=== PATIENT | male | born 1955 | race Caucasian/White ===

== ENCOUNTER 2019-03-05 10:08 | Emergency (ER) | payer OTHER ==
[2019-03-05 10:20] VITALS: TEMP 97.1
[2019-03-05] MEDS ORDERED: HYDROcodone 5MG/APAP 325MG 1 EA TAB PO ONE (10:36)
[2019-03-05] MEDS ORDERED: diazePAM 5 MG TAB PO ONE (10:36)
--- NOTE | 2019-03-05 10:40 | ED.PDOC ---
History of Present Illness - General Chief Complaint: Trauma Stated Complaint: Neck, R ribcage, R lower back discomfort Time Seen by Provider: 03/05/19 10:36 Source: patient Exam Limitations: no limitations - History of Present Illness Initial Comments: 63 yo M who presents after fall yesterday with bilateral neck pain that radiates up with associated headache, R lower back pain, R rib pain. Pt states he was stepping on the boat and did not realize it was as low as it was, slipped and fell sustaining the injuries noted above. Denies head trauma, LOC. Pt states he feels more sore today. Pt is not on any anticoagulation. Denies weakness, numbness, change in vision, CP, SOB, abd pain, n/v, flank pain, hematuria. Allergies/Adverse Reactions: Allergies NO KNOWN ALLERGY Allergy (Verified 03/05/19 10:24) Home Medications: Ambulatory Orders Acetaminophen W/ Codeine [Tylenol W/ CODEINE #3] 1 ea PO Q8H PRN #12 03/05/19 Methocarbamol [Robaxin] 500 mg PO Q8H PRN #16 tab 03/05/19 Review of Systems - Review of Systems Constitutional: Denies: chills, diaphoresis, fever EENTM: Denies: blurred vision, double vision Respiratory: Denies: short of breath, stridor, wheezing Cardiology: Denies: chest pain, palpitations, syncope Gastrointestinal/Abdominal: Denies: abdominal pain, nausea, vomiting Genitourinary: Denies: dysuria, hematuria Musculoskeletal: States: back pain, neck pain, other - R rib pain Skin: States: other - no wounds. Denies: change in color Neurological: States: headache. Denies: numbness, paresthesia, tingling, weakness Past Medical History (General) - Patient Medical History Hx Stroke: No Hx Asthma: Yes Hx Cardiac Disorders: Yes - Dyslipidemia Hx Congestive Heart Failure: No Hx Hypertension: Yes Hx Diabetes: Yes Hx MRSA: No - Vaccination History Hx Influenza Vaccination: Yes - 2019 Hx Pneumococcal Vaccination: Yes - Social History Hx Tobacco Use: No Hx Alcohol Use: Yes - Social use Hx Substance Use: No Family Medical History - Family History Father Hx Family Hypertension: Yes Hx Cardiac Disease: Yes Physical Exam - Physical Exam General Appearance: Alert, Comfortable, No apparent distress, Well Developed, Well Nourished Eye Exam: bilateral normal Ears, Nose, Throat: normal ENT inspection Neck: full range of motion, supple, normal inspection, other - +C midline TTP. No midline T/L spine TTP. No C/T/L spine step off's, deformities, crepitus, ecchymosis. Respiratory: lungs clear, normal breath sounds, no respiratory distress, no accessory muscle use Cardiovascular/Chest: normal peripheral pulses, regular rate, rhythm, no edema, no gallop, no JVD, no murmur Peripheral Pulses: radial,right: 2+, radial,left: 2+ Gastrointestinal/Abdominal: non tender, soft, other - No distention, guarding, rebound. Atraumatic. Back Exam: normal inspection, no CVA tenderness, other - L paraspinal TTP. Extremity: normal range of motion, non-tender, normal inspection, no pedal edema, no calf tenderness, normal capillary refill, other - Full ROM of all extremities without deformity, tenderness, or swelling. Neurovascularly intact. 2+ distal pulses. Cap refill <2 seconds. Neurologic: desk officer II-XII nml as tested, no motor/sensory deficits, alert, normal mood/affect, oriented x 3 Skin Exam: normal color, warm/dry Progress - Progress Progress: MIPS: CT head obtained 2/2 ARCE >24 hours after injury. I have explained and reviewed all results with the pt. Pt is comfortable going home. I explained that emergent conditions may arise and to return to the ER for new, worsening, or any persistent conditions. I've explained the importance of f/u for recheck. All questions and concerns addressed at this time. Pt understands and agrees with plan. Pt well appearing, NAD, is stable for discharge. Laura Pond MD Emergency Medicine Physician Billing Number [id number] - Results/Orders Results/Orders: Rib XR: EXAM DESCRIPTION: Ribs,Right 3 Views CLINICAL HISTORY: pain, trauma COMPARISON: None. TECHNIQUE: 3 views right FINDINGS: Orthopedic anchors are observed in the right shoulder. No pneumothorax is seen. No rib fracturing is detected. IMPRESSION: No rib fracturing is detected. Electronically signed by: Tanner Walton MD 03/05/2019 11:29 AM [address]IENT PHARMACY MANAGER CT head: EXAM DESCRIPTION: Head CT without contrast CLINICAL HISTORY: trauma COMPARISO N: None available TECHNIQUE: Noncontrast head CT was performed with routine protocol. FINDINGS: Normal stevens-white matter differentiation. Ventricles and sulci are normal for age. No high density hemorrhage, focal edema or shift of the midline. No sulcal effacement. Normal orbital contents. Basilar cisterns appear clear. Intact calvarium with no fracture or lytic lesion. Normal aeration of tympanic cavities and mastoid air cells. No fluid levels in the paranasal sinuses. Skull base appears intact. Symmetrical internal auditory canals. IMPRESSION: No acute intracranial pathologic process. This exam was performed according to our departmental dose-optimization program, which includes automated exposure control, adjustment of the mA and/or kV according to patient size and/or use of iterative reconstruction technique. Total DLP equals 967.47 mGycm. Electronically signed by: Ethan Muse MD 03/05/2019 11:31 AM [address]IENT PHARMACY MANAGER CT c spine: EXAM DESCRIPTION: Cervical Spine CLINICAL HISTORY: trauma COMPARISON: None Available. TECHNIQUE: Cervical CT is performed with thin-section axial imaging. MPRs are created and reviewed as well. FINDINGS: Axial bone window images reveal intact ring of C1. No abnormal widening of the atlantodens interval. No fracture of the vertebral bodies or transverse processes or posterior elements. Lung apices appear clear. No cervical mass or adenopathy. Sagittal reformatted images show normal alignment of vertebral bodies and facets. No jumped facet or facet fracture. Normal craniocervical alignment. No prevertebral soft tissue swelling. No acute avulsion of the spinous processes. Spondylosis: Degenerative disc disease with uncinate spurring at C4-5 and C5-6. Severe left C5-6 neural foraminal narrowing related to uncinate spurring. Sagittal reformatted images show mild posterior disc/osteophyte complexes at C4-5 and C5-6 without high- grade spinal stenosis. Nuchal ligament calcification is incidentally noted. Coronal reformatted images show normal atlantooccipital and atlantoaxial alignment. The base of the dens is intact as is the body of C2. Intact lateral masses. IMPRESSION: Negative for fracture or posttraumatic subluxation. This exam was performed according to our departmental dose-optimization program, which includes automated exposure control, adjustment of the mA and/or kV according to patient size and/or use of iterative reconstruction technique. Total DLP equals 441.08 mGycm. Electronically signed by: Ethan Muse MD 03/05/2019 11:34 AM OUTPATIENT PHARMACY MANAGER Vital Signs - 24 hr 03/05/19 03/05/19 03/05/19 10:18 10:30 11:30 Temperature 97.1 F L 97.1 F L Pulse Rate [ 103 H 102 H 100 H Pulse ox] Respiratory 22 22 22 Rate Blood Pressure 171/91 154/90 121/96 [L brachial] O2 Sat by Pulse 95 95 93 L Oximetry Departure - Departure Clinical Impression: Muscle strain, Neck pain, acute Fall Qualifiers: Encounter type: initial encounter Qualified Code(s): W19.XXXA - Unspecified fall, initial encounter Contusion of rib on right side Qualifiers: Encounter type: initial encounter Qualified Code(s): S20.211A - Contusion of right front wall of thorax, initial encounter Headache Qualifiers: Headache type: unspecified Headache chronicity pattern: acute headache Intractability: not intractable Qualified Code(s): R51 - Headache Time of Disposition: 11:54 Disposition: Discharge to Home or Self Care Health Concerns: Condition: stable Departure Forms: ED Discharge - Pt. Copy, Patient Portal Self Enrollment Instructions: DI for Trauma, Muscle Strain Prescriptions: Acetaminophen W/ Codeine [Tylenol W/ CODEINE #3] 1 ea PO Q8H PRN #12 PRN Reason: Pain Methocarbamol [Robaxin] 500 mg PO Q8H PRN #16 tab PRN Reason: Pain Home Medications: Ambulatory Orders Acetaminophen W/ Codeine [Tylenol W/ CODEINE #3] 1 ea PO Q8H PRN #12 03/05/19 Methocarbamol [Robaxin] 500 mg PO Q8H PRN #16 tab 03/05/19 Additional Instructions: Follow up: [facility] As needed, if symptoms worsen Your Primary Care Physician Make appointment, three days, for follow up
--- NOTE | 2019-03-05 11:30 | RAD ---
EXAM DESCRIPTION: Ribs,Right 3 Views CLINICAL HISTORY: pain, trauma COMPARISON: None. TECHNIQUE: 3 views right FINDINGS: Orthopedic anchors are observed in the right shoulder. No pneumothorax is seen. No rib fracturing is detected. IMPRESSION: No rib fracturing is detected. Electronically signed by: Tanner Walton MD 03/05/2019 11:29 AM [facility]
--- NOTE | 2019-03-05 11:32 | CT ---
EXAM DESCRIPTION: Head CT without contrast CLINICAL HISTORY: trauma COMPARISON: None available TECHNIQUE: Noncontrast head CT was performed with routine protocol. FINDINGS: Normal stevens-white matter differentiation. Ventricles and sulci are normal for age. No high density hemorrhage, focal edema or shift of the midline. No sulcal effacement. Normal orbital contents. Basilar cisterns appear clear. Intact calvarium with no fracture or lytic lesion. Normal aeration of tympanic cavities and mastoid air cells. No fluid levels in the paranasal sinuses. Skull base appears intact. Symmetrical internal auditory canals. IMPRESSION: No acute intracranial pathologic process. This exam was performed according to our departmental dose-optimization program, which includes automated exposure control, adjustment of the mA and/or kV according to patient size and/or use of iterative reconstruction technique. Total DLP equals 967.47 mGycm. Electronically signed by: Ethan Muse MD 03/05/2019 11:31 AM POSTAL SUPPORT EMPLOYEE
--- NOTE | 2019-03-05 11:35 | CT ---
EXAM DESCRIPTION: Cervical Spine CLINICAL HISTORY: trauma COMPARISON: None Available. TECHNIQUE: Cervical CT is performed with thin-section axial imaging. MPRs are created and reviewed as well. FINDINGS: Axial bone window images reveal intact ring of C1. No abnormal widening of the atlantodens interval. No fracture of the vertebral bodies or transverse processes or posterior elements. Lung apices appear clear. No cervical mass or adenopathy. Sagittal reformatted images show normal alignment of vertebral bodies and facets. No jumped facet or facet fracture. Normal craniocervical alignment. No prevertebral soft tissue swelling. No acute avulsion of the spinous processes. Spondylosis: Degenerative disc disease with uncinate spurring at C4-5 and C5-6. Severe left C5-6 neural foraminal narrowing related to uncinate spurring. Sagittal reformatted images show mild posterior disc/osteophyte complexes at C4-5 and C5-6 without high-grade spinal stenosis. Nuchal ligament calcification is incidentally noted. Coronal reformatted images show normal atlantooccipital and atlantoaxial alignment. The base of the dens is intact as is the body of C2. Intact lateral masses. IMPRESSION: Negative for fracture or posttraumatic subluxation. This exam was performed according to our departmental dose-optimization program, which includes automated exposure control, adjustment of the mA and/or kV according to patient size and/or use of iterative reconstruction technique. Total DLP equals 441.08 mGycm. Electronically signed by: Ethan Muse MD 03/05/2019 11:34 AM ADVERTISEMENT DISTRIBUTOR
[2019-03-05 12:22] VITALS: BP 148/88; O2SAT 94
== END 2019-03-05 12:20 | disposition home or self-care (01) ==
LOC: ER 10:08
DX: S16.1XXA Strain of muscle, fascia and tendon at neck level, initial encounter (principal); S20.211A Contusion of right front wall of thorax, initial encounter; R51 Headache; M54.5 Low back pain; J45.909 Unspecified asthma, uncomplicated; E78.5 Hyperlipidemia, unspecified; I10 Essential (primary) hypertension; E11.9 Type 2 diabetes mellitus without complications; V93.39XA Fall on board unspecified watercraft, initial encounter; Y92.814 Boat as the place of occurrence of the external cause